=== PATIENT | female | born 1960 | race Caucasian/White ===

== ENCOUNTER 2017-01-20 22:29 | Emergency (ER) | payer OTHER ==
[~2017-01-20] VITALS: Ht 160 cm; Wt 81.3 kg
[2017-01-20 23:28] VITALS: BP 180/77
[2017-01-20] MEDS ORDERED: IBUPROFEN600 MG PO (23:29)
== END 2017-01-20 23:29 | disposition home or self-care (01) ==
LOC: EME 22:29
DX: S51.819A Laceration without foreign body of unspecified forearm, initial encounter (principal); S61.011A Laceration without foreign body of right thumb without damage to nail, initial encounter; W20.8XXA Other cause of strike by thrown, projected or falling object, initial encounter; I10 Essential (primary) hypertension
CPT/HCPCS: 99281; 99284